=== PATIENT | male | born 1995 | race African-American/Black ===

== ENCOUNTER 2018-12-17 11:11 | Emergency (ER) | payer MEDICAID ==
[2018-12-17 11:30] VITALS: BP 111/82
--- NOTE | 2018-12-17 12:24 | EDPHY ---
H & P Stated Complaint: Purnima Time Seen by Provider: 12/17/18 12:17 HPI/ROS: CHIEF COMPLAINT: Purnima HISTORY OF PRESENT ILLNESS: The patient is a 23-year-old man who comes to the emergency department complaining of shaking at triage. However when I entered the room he told me that his symptoms have resolved and he is no longer concerned. He told me that he was concerned about alcohol withdrawal because he had been drinking heavily and stopped 4 days ago. He has never suffered alcohol withdrawal before and does not drink daily. He is now asymptomatic and wishes to leave. No fever. Severity: Moderate Modifying factors: None REVIEW OF SYSTEMS: Constitutional: See HPI denies: chills, fever, recent illness, recent injury EENTM: denies: blurred vision, double vision, nose congestion Respiratory: denies: cough, shortness of breath Cardiac: denies: chest pain, irregular heart rate, lightheadedness, palpitations Gastrointestinal/Abdominal: denies: abdominal pain, diarrhea, nausea, vomiting, blood streaked stools Genitourinary: denies: dysuria, frequency, hematuria, pain Musculoskeletal: denies: joint pain, muscle pain Skin: denies: lesions, rash, jaundice, bruising Neurological: denies: headache, numbness, paresthesia, tingling, dizziness, weakness Hematologic/Lymphatic: denies: blood clots, easy bleeding, easy bruising Immunologic/allergic: denies: HIV/AIDS, transplant 10 systems reviewed and negative except as noted EXAM: GENERAL: Well-appearing, well-nourished and in no acute distress. HEAD: Atraumatic, normocephalic. EYES: Pupils equal round and reactive to light, extraocular movements intact, sclera anicteric, conjunctiva are normal. ENT: TMs normal, nares patent, oropharynx clear without exudates. Moist mucous membranes. NECK: Normal range of motion, supple without lymphadenopathy or JVD. LUNGS: Breath sounds clear to auscultation bilaterally and equal. No wheezes rales or rhonchi. HEART: Regular rate and rhythm without murmurs, rubs or gallops. ABDOMEN: Soft, nontender, normoactive bowel sounds. No guarding, no rebound. No masses appreciated. BACK: No CVA tenderness, no spinal tenderness, step-offs or deformities EXTREMITIES: Normal range of motion, no pitting or edema. No clubbing or cyanosis. NEUROLOGICAL: Cranial nerves II through XII grossly intact. Normal speech, normal gait. 5/5 strength, normal movement in all extremities, normal sensation , normal reflexes PSYCH: Normal mood, normal affect. SKIN: Warm, dry, normal turgor, no visible rashes or lesions. Source: Patient Exam Limitations: No limitations - Personal History Current Tetanus Diphtheria and Acellular Pertussis (TDAP): Yes Tetanus Vaccine Date: within 10 yrs - Medical/Surgical History Hx Asthma: No Hx Chronic Respiratory Disease: No Hx Diabetes: No Hx Cardiac Disease: No Hx Renal Disease: No Hx Cirrhosis: No Hx Alcoholism: No Hx HIV/AIDS: No Other PMH: denies - Family History Significant Family History: No pertinent family hx - Social History Smoking Status: Current every day smoker Alcohol Use: None Constitutional: Initial Vital Signs Temperature (C) 37.2 C 12/17/18 11:27 Heart Rate 76 12/17/18 11:27 Respiratory Rate 18 12/17/18 11:27 Blood Pressure 111/82 H 12/17/18 11:27 O2 Sat (%) 95 12/17/18 11:27 O2 Delivery Mode Room Air Allergies/Adverse Reactions: No Known Allergies Allergy (Unverified 12/17/18 11:27) Home Medications: Medication Instructions Recorded NK [No Known Home Meds] 12/17/18 Medical Decision Making ED Course/Re-evaluation: 12:20 p.m. the patient is unusual. He is wearing a shopka hat and will not take it off. He is also wearing a surgical mask. He tells me that his symptoms are resolved and he no longer wishes to be here. We discussed alcohol and alcohol withdrawal. He then asked if we could do blood work. I asked him what in particular he wanted to evaluate with the blood work. He told me he was not sure but that often times in the morning he feels tingly all over and does not want to get out of bed and slightly nauseous. His symptoms resolve after an hour or 2. He asked if this could be diabetes. I said that it could be early diabetic signs and offered to do chemistry and CBC and urinalysis. Patient asked how long this would take and I told him approximately an hour. At this point he said that he did not want to wait that long and would return tomorrow or the next day if the symptoms returned. Differential Diagnosis: Partial list of the Differential diagnosis considered include but were not limited to; anxiety, withdrawal, viral infection and although unlikely based on the history and physical exam, I also considered diabetes, spinal cord abnormality. I discussed these differential diagnoses and the plan with the patient as well as the usual and expected course. The patient understands that the diagnosis is provisional and that in medicine we are not always correct and that further workup is often warranted. Usual and customary warnings were given. All of the patient's questions were answered. The patient was instructed to return to the emergency department should the symptoms at all worsen or return, otherwise to followup with the physician as we discussed. Departure - Departure Disposition: Home, Routine, Self-Care Clinical Impression: Feared complaint without diagnosis Condition: Fair Instructions: Anxiety (ED) Referrals: [facility],. [Clinic] - As per Instructions
== END 2018-12-17 12:29 | disposition home or self-care (01) ==
LOC: CED 11:11
DX: R25.1 Tremor, unspecified (principal); F41.9 Anxiety disorder, unspecified; F10.10 Alcohol abuse, uncomplicated; F17.200 Nicotine dependence, unspecified, uncomplicated
CPT/HCPCS: 99282-ER

== ENCOUNTER 2019-01-05 16:50 | Emergency (ER) | payer MEDICAID ==
[2019-01-05] MEDS ORDERED: LET GEL TOPICAL 1 EA SYR TP ONE (17:07)
[2019-01-05] MEDS ORDERED: IBUPROFEN 600 MG TAB PO ONE (18:30)
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
[2019-01-05 18:53] VITALS: BP 154/91
== END 2019-01-05 18:55 | disposition home or self-care (01) ==
LOC: CED 16:50
PROC: 0HQ1XZZ Repair Face Skin, External Approach (ICD-10-PCS; principal; 2019-01-05)
DX: S01.81XA Laceration without foreign body of other part of head, initial encounter (principal); Y04.0XXA Assault by unarmed brawl or fight, initial encounter
CPT/HCPCS: 99282-ER